=== PATIENT | male | born 1990 | race African-American/Black ===

== ENCOUNTER 2016-06-15 05:36 | Emergency (ER) | payer SELFPAY ==
--- NOTE | 2016-06-15 07:24 | ER Document Report ---
ED GI/ - General Chief Complaint: Vomiting Stated Complaint: ABDOMINAL PAIN Time seen by provider: 07:24 Mode of Arrival: Ambulatory Information source: Patient Notes: 26-year-old male with mild abdominal pain that started last week and he wants to know if it is his gallbladder. Street of appendectomy. No fever. This morning he woke up again with vomiting and was unable to go to work. No constipation or diarrhea. No dysuria. No groin pain or swelling. - Related Data Allergies/Adverse Reactions: No Known Allergies Allergy (Unverified 06/15/16 05:43) Past Medical History - General Information source: Patient - Social History Smoking Status: Current Every Day Smoker Frequency of alcohol use: None Drug Abuse: None Lives with: Spouse/Significant other Family History: Reviewed & Not Pertinent - Medical History Medical History: Negative Renal/ Medical History: Denies: Hx Peritoneal Dialysis Past Surgical History: Reports: Hx Appendectomy Review of Systems - Review of Systems Constitutional: No symptoms reported EENT: No symptoms reported Cardiovascular: No symptoms reported Respiratory: No symptoms reported Gastrointestinal: See HPI Genitourinary: No symptoms reported Male Genitourinary: No symptoms reported Musculoskeletal: No symptoms reported Skin: No symptoms reported Hematologic/Lymphatic: No symptoms reported Neurological/Psychological: No symptoms reported Physical Exam - Vital signs Vitals: Temp Pulse Resp BP Pulse Ox 98.6 F 85 18 136/83 H 96 06/15/16 05:44 06/15/16 05:44 06/15/16 05:44 06/15/16 05:44 06/15/16 05:44 Interpretation: Normal - General General appearance: Appears well, Alert In distress: None - HEENT Head: Normocephalic, Atraumatic Eyes: Normal Conjunctiva: Normal Pupils: PERRL Mucous membranes: Normal Pharynx: Normal Neck: Supple. No: Lymphadenopathy - Respiratory Respiratory status: No respiratory distress Chest status: Nontender Breath sounds: Normal Chest palpation: Normal - Cardiovascular Rhythm: Regular Heart sounds: Normal auscultation Murmur: No - Abdominal Inspection: Normal Distension: No distension Bowel sounds: Normal Tenderness: Nontender. No: Tender Organomegaly: No organomegaly. No: Hepatomegaly, Splenomegaly - Back Back: Normal, Nontender. No: CVA tenderness - Extremities General upper extremity: Normal inspection, Nontender, Normal color, Normal ROM , Normal temperature General lower extremity: Normal inspection, Nontender, Normal color, Normal ROM , Normal temperature, Normal weight bearing. No: Yayo's sign - Neurological Neuro grossly intact: Yes Cognition: Normal Orientation: AAOx4 Shivani Coma Scale Eye Opening: Spontaneous [place] Coma Scale Verbal: Oriented [place] Coma Scale Motor: Obeys Commands [place] Coma Scale Total: 15 Speech: Normal Motor strength normal: LUE, RUE, LLE, RLE Sensory: Normal - Psychological Associated symptoms: Normal affect, Normal mood - Skin Skin Temperature: Warm Skin Moisture: Dry Skin Color: Normal Skin irregularity: negative: Rash Course - Re-evaluation Re-evalutation: 06/15/16 08:26 Keeping by mouth's down. Abdomen still nontender. He feels like he has to have a bowel movement. Instructed patient that if the pain recurs or has any new symptoms to return to the emergency room today and he will get a work note. 06/15/16 08:39 I have consulted with the supervisory physician per [facility] Guidelines., dr. hood - Vital Signs Vital signs: Temp Pulse Resp BP Pulse Ox 98.7 F 62 16 127/87 H 100 06/15/16 08:50 06/15/16 08:50 06/15/16 08:50 06/15/16 08:50 06/15/16 08:50 Discharge - Discharge Clinical Impression: Vomiting Qualifiers: Vomiting type: unspecified Vomiting Intractability: non-intractable Nausea presence: with nausea Qualified Code(s): R11.2 - Nausea with vomiting, unspecified Abdominal pain Qualifiers: Abdominal location: unspecified location Qualified Code(s): R10.9 - Unspecified abdominal pain Condition: Good Disposition: HOME, SELF-CARE Instructions: Abdominal Pain ([facility]), Vomiting ([facility]) Additional Instructions: Drink plenty of fluids Return to the emergency room for any abdominal pain or new symptoms today. Prescriptions: Ondansetron HCl [Zofran 4 mg Tablet] 1 - 2 tab PO Q4H PRN #30 tablet PRN Reason: Forms: Return to Work
[2016-06-15] MEDS ORDERED: ONDANSETRON 4 MG TAB.RAPDIS PO ONE (07:29)
[2016-06-15] MEDS ORDERED: DIPHENHYDRAMINE HCL 50 MG/ML VIAL IV ONE (08:22)
[2016-06-15 08:57] VITALS: BP 127/87
== END 2016-06-15 08:50 | disposition home or self-care (01) ==
LOC: ER 05:36
DX: R11.10 Vomiting, unspecified (principal); R10.9 Unspecified abdominal pain; F17.200 Nicotine dependence, unspecified, uncomplicated
CPT/HCPCS: 99283; S0119

== ENCOUNTER 2017-05-26 06:54 | Emergency (ER) | payer SELFPAY ==
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
[2017-05-26] MEDS ORDERED: LIDOCAINE 1%/EPINEPHRINE INJ 20 ML VIAL INJ ONE (07:40)
[2017-05-26] MEDS ORDERED: NAPROXEN 250 MG TABLET PO ONE (07:42)
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
[2017-05-26] MEDS ORDERED: LIDOCAINE 2%/EPINEPHRINE INJ 20 ML VIAL INJ ONE (07:53)
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
[2017-05-26 10:09] VITALS: BP 127/81
== END 2017-05-26 10:09 | disposition home or self-care (01) ==
LOC: ER 06:54
DX: S02.32XA Fracture of orbital floor, left side, initial encounter for closed fracture (principal); S01.81XA Laceration without foreign body of other part of head, initial encounter; S50.11XA Contusion of right forearm, initial encounter; Y08.02XA Assault by strike by baseball bat, initial encounter; Y93.84 Activity, sleeping
CPT/HCPCS: 12052; 99284; 73090; 70450; 70486; J3490